=== PATIENT | female | born 1970 | race Caucasian/White ===

== ENCOUNTER 2023-08-29 20:05 | Emergency (ER) | payer OTHER ==
[2023-08-29] MEDS ORDERED: predniSONE 20 MG Tab PO ONE ×2 (20:06→21:25)
[2023-08-29] MEDS ORDERED: Acetaminophen/oxyCODONE 325-5 MG Tab PO ONE (20:06)
[2023-08-29] MEDS ORDERED: Acetaminophen/HYDROcodone 325-5 MG Tab PO PRN (21:29)
== END 2023-08-29 22:15 | disposition home or self-care (01) ==
LOC: FB.ED 20:05
DX: S20.214A Contusion of middle front wall of thorax, initial encounter (principal); J44.9 Chronic obstructive pulmonary disease, unspecified; F17.210 Nicotine dependence, cigarettes, uncomplicated; Z88.0 Allergy status to penicillin; W19.XXXA Unspecified fall, initial encounter
CPT/HCPCS: 71046; 99284; A9270; J7512

== ENCOUNTER 2024-01-07 13:31 | Emergency (ER) | payer OTHER | END 2024-01-07 13:59 | disposition home or self-care (01) | LOC: FB.ED 13:31 | DX: B00.2 Herpesviral gingivostomatitis and pharyngotonsillitis (principal); Z88.0 Allergy status to penicillin | CPT/HCPCS: 99283 ==